=== PATIENT | male | born 1935 | race Caucasian/White ===

== ENCOUNTER 2017-10-24 11:26 | Emergency (ER) | payer MEDICARE, OTHER ==
[2017-10-24 13:30] LABS: ANION GAP 13.8
--- NOTE | 2017-10-24 13:50 | EDM.PDOC ---
Scribed by Ivana Rondon 10/24/17 1786 for Kole Taylor PA ED HPI GENERAL MEDICAL PROBLEM - General Chief Complaint: Gastrointestinal Problem Stated Complaint: BLEEDING, HEMO Time Seen by Provider: 10/24/17 12:55 Source of Information: Reports: Patient, RN, RN Notes Reviewed History Limitations: Reports: No Limitations - History of Present Illness INITIAL COMMENTS - FREE TEXT/NARRATIVE: Patient is an 81-year-old male with blood coming from the rectum. This started last night with a large amount this a.m. - Related Data Allergies Allergy/AdvReac Type Severity Reaction Status Date / Time No Known Allergies Allergy Verified 12/08/14 06:15 Home Meds: Home Meds Metoprolol Succinate [Toprol XL] 25 mg PO DAILY 03/29/13 [History] Multivitamin [Multivitamins] 1 each PO DAILY 03/29/13 [History] Fluticasone Propionate [Flovent HFA 110 MCG] 12 gm INH BID 12/08/14 [History] Hydrochlorothiazide 12.5 mg PO DAILY 12/08/14 [History] Losartan [Cozaar] 50 mg PO BID 12/08/14 [History] Omeprazole [Prilosec] 20 mg PO DAILY 12/08/14 [History] Albuterol Sulfate [Proair Hfa] 8.5 gm INH Q6H PRN 10/24/17 [History] Budesonide [Pulmicort] 0.25 mg INH DAILY 10/24/17 [History] Past Medical History Cardiovascular History: Reports: High Cholesterol, Hypertension Respiratory History: Reports: COPD, Sleep Apnea Gastrointestinal History: Reports: GI Bleed - Past Surgical History HEENT Surgical History: Reports: Adenoidectomy, Cataract Surgery, Tonsillectomy Cardiovascular Surgical History: Reports: AICD GI Surgical History: Reports: Appendectomy Male Surgical History: Reports: Prostatectomy Social & Family History - Tobacco Use Smoking Status *Q: Former Smoker Years of Tobacco use: 30 Packs/Tins Daily: 1 Used Tobacco, but Quit: Yes Month/Year Tobacco Last Used: 1975 - Caffeine Use Caffeine Use: Reports: Coffee - Alcohol Use Days Per Week of Alcohol Use: 7 Number of Drinks Per Day: 2 Total Drinks Per Week: 14 - Recreational Drug Use Recreational Drug Use: No - Living Situation & Occupation Living situation: Reports: , with Spouse ED ROS GENERAL - Review of Systems Review Of Systems: ROS reveals no pertinent complaints other than HPI. ED EXAM, GI/ABD - Physical Exam Exam: See Below Exam Limited By: No Limitations General Appearance: Alert, WD/WN, No Apparent Distress Eyes: Bilateral: Normal Appearance Ears: Normal External Exam, Normal Canal, Hearing Grossly Normal, Normal TMs Nose: Normal Inspection, Normal Mucosa, No Blood Throat/Mouth: Normal Inspection, Normal Lips, Normal Teeth, Normal Gums, Normal Oropharynx, Normal Voice, No Airway Compromise Head: Atraumatic, Normocephalic Neck: Normal Inspection, Supple, Non-Tender, Full Range of Motion Respiratory/Chest: No Respiratory Distress, Lungs Clear, Normal Breath Sounds, No Accessory Muscle Use, Chest Non-Tender Cardiovascular: Normal Peripheral Pulses, Regular Rate, Rhythm, No Edema, No Gallop, No JVD, No Murmur, No Rub GI/Abdominal Exam: Other (diffuse lower abdominal tenderness, no pain.) (Male) Exam: Deferred Rectal (Males) Exam: Hemorrhoids (no apparent bleeding from hemorrhoids.), Other (digital rectal exam shows normal rectal tone, ashly blood. ) Back Exam: Normal Inspection, Full Range of Motion, NT Extremities: Normal Inspection, Normal Range of Motion, Non-Tender, Normal Capillary Refill, No Pedal Edema Neurological: Alert, Oriented, CN II-XII Intact, Normal Cognition, Normal Gait, Normal Reflexes, No Motor/Sensory Deficits Psychiatric: Normal Affect, Normal Mood Skin Exam: Warm, Dry, Intact, Normal Color, No Rash Lymphatic: No Adenopathy Course - Vital Signs Last Recorded V/S: Last Vital Signs Temp 37.3 C 10/24/17 13:12 Pulse 86 10/24/17 13:12 Resp 16 10/24/17 13:12 BP 151/88 H 10/24/17 13:12 Pulse Ox 94 L 10/24/17 13:12 - Orders/Labs/Meds Labs: Laboratory Tests 10/24/17 10/24/17 Range/Units 13:03 13:03 WBC 10.1 H (5.0-10.0) 10^3/uL RBC 4.93 (4.6-6.2) 10^6/uL Hgb 15.0 (14.0-18.0) g/dL Hct 44.0 (40.0-54.0) % MCV 89.2 D (80-100) fL MCH 30.4 (27.0-34.0) pg MCHC 34.1 (33.0-35.0) g/dL Plt Count 163 (150-450) 10^3/uL Neut % (Auto) 80.2 H (42.2-75.2) % Lymph % (Auto) 11.3 L (20.5-50.1) % [place] % (Auto) 8.2 H (2-8) % Eos % (Auto) 0.2 L (1.0-3.0) % Baso % (Auto) 0.1 (0.0-1.0) % Sodium 137 (135-145) mmol/L Potassium 3.8 (3.6-5.0) mmol/L Chloride 101 (101-111) mmol/L Carbon Dioxide 26.0 (21.0-31.0) mmol/L Anion Gap 13.8 BUN 28 H (7-18) mg/dL Creatinine 1.3 (0.6-1.3) mg/dL Est Cr Clr Drug Dosing 45.86 mL/min Estimated GFR (MDRD) 53 BUN/Creatinine Ratio 21.53 Glucose 105 (74-105) mg/dL Calcium 9.0 (8.4-10.2) mg/dl Total Bilirubin 1.2 H (0.2-1.0) mg/dL AST 37 (10-42) IU/L ALT 43 (10-60) IU/L Alkaline Phosphatase 51 (42-121) IU/L Total Protein 6.8 (6.7-8.2) g/dl Albumin 4.0 (3.2-5.5) g/dl Globulin 2.8 Albumin/Globulin Ratio 1.43 Departure - Departure Time of Disposition: 13:47 Disposition: DC/Tfer to [facility] Condition: Fair Clinical Impression: GI bleed Qualifiers: GI bleed type/associated pathology: unspecified gastrointestinal hemorrhage type Qualified Code(s): K92.2 - Gastrointestinal hemorrhage, unspecified - Discharge Information *PRESCRIPTION DRUG MONITORING PROGRAM REVIEWED*: Not Applicable *COPY OF PRESCRIPTION DRUG MONITORING REPORT IN PATIENT JOSEPH: Not Applicable Forms: Interfacility Transfer EMTALA Care Plan Goals: Discussed the patient's examination, history and lab results with Dr. Eduardo ( Hospitalist with [facility] in [place]). Dr. Eduardo accepted the patient for continued evaluation and further management. The patient will be transported by [facility]. I have read and agree with the documentation that has been completed regarding this visit. By signing this record, I attest that the documentation was completed in my physical presence and is an accurate record of the encounter.
[2017-10-24 13:51] VITALS: BP 140/83
== END 2017-10-24 14:28 ==
LOC: DL.ED 11:26
DX: K92.2 Gastrointestinal hemorrhage, unspecified (principal); E78.00 Pure hypercholesterolemia, unspecified; I10 Essential (primary) hypertension; J44.9 Chronic obstructive pulmonary disease, unspecified; Z79.899 Other long term (current) drug therapy; Z87.891 Personal history of nicotine dependence
CPT/HCPCS: 36415; 80053; 82272; 85025; 99284; 99285